=== PATIENT | male | born 1995 | race African-American/Black ===

== ENCOUNTER 2017-10-21 21:00 | Emergency (ER) | payer SELFPAY ==
[2017-10-21] MEDS ORDERED: DIAZEPAM 5 MG TABLET PO ONE (21:41)
[2017-10-21] MEDS ORDERED: FLUOXETINE HCL 20 MG CAPSULE PO ONE (22:36)
--- NOTE | 2017-10-21 22:38 | ER Document Report ---
ED General - General Chief Complaint: Anxiety Stated Complaint: POSSIBLE PANIC ATTACK Time Seen by Provider: 10/21/17 21:41 Notes: Patient is a 22-year-old male with a past medical history of depression, generalized anxiety, who presents with several weeks of progressively worsening general anxiety and recurrent panic attacks. The patient states that his symptoms have been getting progressively worse with several weeks but became much worse over the past 1 week. He attributed this to recently starting a new job. Nothing seems to improve his symptoms. He has not seen a psychiatrist or a general physician regarding his anxiety. He has never been on psychiatric medications in the past. He denies any active suicidal ideation but states "sometimes I have a passing thought". Denies any previous suicide attempts. Denies any access to medications. Denies access to firearms. He does live with his mother. He denies any acute medical concerns. TRAVEL OUTSIDE OF THE [place] IN LAST 30 DAYS: No - Related Data Allergies/Adverse Reactions: No Known Allergies Allergy (Unverified 10/21/17 22:09) Past Medical History - General Information source: Patient - Social History Smoking Status: Never Smoker Chew tobacco use (# tins/day): No Frequency of alcohol use: None Drug Abuse: None Lives with: Parents Family History: Reviewed & Not Pertinent Patient has suicidal ideation: No Patient has homicidal ideation: No Renal/ Medical History: Denies: Hx Peritoneal Dialysis Psychiatric Medical History: Reports: Hx Depression Review of Systems - Review of Systems Notes: Constitutional: Negative for fever. HENT: Negative for sore throat. Eyes: Negative for visual changes. Cardiovascular: Negative for chest pain. Respiratory: Negative for shortness of breath. Gastrointestinal: Negative for abdominal pain, vomiting or diarrhea. Genitourinary: Negative for dysuria. Musculoskeletal: Negative for back pain. Skin: Negative for rash. Neurological: Negative for headaches, weakness or numbness. 10 point ROS negative except as marked above and in HPI. Physical Exam - Vital signs Vitals: Temp Pulse BP Pulse Ox 99.2 F 74 127/83 H 100 10/21/17 21:04 10/21/17 21:04 10/21/17 21:04 10/21/17 21:04 Interpretation: Normal Notes: PHYSICAL EXAMINATION: GENERAL: Well-appearing, well-nourished and in no acute distress. HEAD: Atraumatic, normocephalic. EYES: Pupils equal round and reactive to light, extraocular movements intact, sclera anicteric, conjunctiva are normal. ENT: nares patent, oropharynx clear without exudates. Moist mucous membranes. NECK: Normal range of motion, supple without lymphadenopathy LUNGS: Breath sounds clear to auscultation bilaterally and equal. No wheezes rales or rhonchi. HEART: Regular rate and rhythm without murmurs ABDOMEN: Soft, nontender, normoactive bowel sounds. No guarding, no rebound. No masses appreciated. EXTREMITIES: Normal range of motion, no pitting or edema. No cyanosis. NEUROLOGICAL: No focal neurological deficits. Moves all extremities spontaneously and on command. PSYCH: epressed mood, moderately anxious, poor eye contact. SKIN: Warm, Dry, normal turgor, no rashes or lesions noted. Course - Re-evaluation Re-evalutation: 10/21/17 22:34 Patient reports chronic generalized daily anxiety and is not currently receiving any therapy for this issue. Patient did arrive quite anxious and improved after receiving oral diazepam. Vitals otherwise within normal limits. I do not suspect an acute pulmonary embolus, ACS, pneumothorax, or any other acute left threatening pathology based on history and exam. I do not believe any labs or imaging are indicated at this time. The patient denies any acute safety concerns. Does admit to intermittent passive suicidal ideation for many years denies anything is new or different about that over the past several weeks. He specifically denies any plans, means or intentions of harming himself. He does not have access to firearm. He has contracted for safety. He does not meet involuntary commitment criteria. He has been started on fluoxetine, Atarax, and provided outpatient resources for psychiatry follow-up. At this time will discharge with return precautions and follow-up recommendations. Verbal discharge instructions given a the bedside and opportunity for questions given. Medication warnings reviewed. Patient is in agreement with this plan and has verbalized understanding of return precautions and the need for primary care follow-up in the next 24-72 hours. 10/22/17 03:18 - Vital Signs Vital signs: Temp Pulse Resp BP Pulse Ox 99.2 F 86 16 127/77 H 99 10/21/17 21:04 10/21/17 22:42 10/21/17 22:42 10/21/17 22:42 10/21/17 22:42 Discharge - Discharge Clinical Impression: Generalized anxiety disorder, Panic attacks Condition: Good Disposition: HOME, SELF-CARE Instructions: Anxiety ([facility]) Additional Instructions: Your being started on fluoxetine to help treat your generalized anxiety. This does take 6 weeks to have any measurable effect so I ask that you do please continue take the medication even if you are not noticing any changes in your symptoms during the first several weeks of treatment. You are also being sent home with a prescription for hydroxyzine which can be used for severe episodes of panic or severe anxiety. Please follow-up with the listed resources for ongoing treatment and care. Please return if you have thoughts of wanting to hurt yourself, hurt others, or have any other symptoms that are concerning to you. Prescriptions: Fluoxetine HCl 20 mg PO DAILY #30 capsule Hydroxyzine HCl 25 mg PO BID PRN #30 tab PRN Reason: Anxiety
[2017-10-21 23:25] VITALS: BP 127/77
== END 2017-10-21 22:55 | disposition home or self-care (01) ==
LOC: ER 21:00
DX: F41.0 Panic disorder [episodic paroxysmal anxiety] (principal); F41.9 Anxiety disorder, unspecified
CPT/HCPCS: 99283